=== PATIENT | male | born 1960 | race Caucasian/White ===

== ENCOUNTER 2020-07-12 17:37 | Day surgery (SDCO) | payer OTHER ==
[~2020-07-12] VITALS: Ht 162.6 cm; Wt 65.9 kg
[2020-07-12 18:22] LABS: BASOPHIL 0.5 % (0-2); EOSINOPHIL 0.6 % (0-5); HCT 37.4 % (42.0-52.0); HGB 13.5 g/dl (13.2-18.0); LYMPHOCYTE 24.3 % (15-48); MCH 39.6 pg (25.0-31.0); MCHC 36.1 g/dL (32.0-36.0); MCV 109.7 fL (78.0-100.0); MONOCYTE 9.1 % (0-12); MPV 10.3 fL (6.0-9.5); NEUTROPHIL 65.1 % (41-80); NRBC 0; PLT 111 K/uL (150-400); RBC 3.41 M/uL (4.70-6.00); RDW 12.8 % (11.5-14.0); WBC 13.3 K/uL (4.0-10.5)
[2020-07-12 18:25] LABS: INR 0.94 (0.9-1.2); PROTHROMBIN TIME 11.9 SECONDS (11.4-13.6); PTT 26.9 SECONDS (22.2-34.7)
[2020-07-12 18:38] LABS: ALBUMIN 3.2 g/dL (3.4-5.0); BILIRUBIN - TOTAL 0.3 mg/dL (0.2-1.0); BUN/CREAT RATIO (CALC) 27.3 RATIO; CREATININE 1.28 mg/dL (0.67-1.17); GLOBULIN (CALCULATION) 3.8 g/dL; POTASSIUM 4.2 mmol/L (3.5-5.1)
[2020-07-12 21:39] LABS: BILIRUBIN NEGATIVE (NEGATIVE); BLOOD NEGATIVE Ery/uL (NEGATIVE); CLARITY CLEAR (CLEAR); COLOR YELLOW (YELLOW); GLUCOSE (U) NORMAL (NORMAL); LEUKOCYTES NEGATIVE Leu/uL (NEGATIVE); NITRITE NEGATIVE (NEGATIVE); PROTEIN NEGATIVE (NEGATIVE); SPECIFIC GRAVITY 1.025 (1.001-1.030); UROBILINOGEN 0.2 mg/dL (0.2-1.0); pH 5.5 (5.0-9.0)
[2020-07-12 21:41] LABS: AMPHETAMINES NEGATIVE (NEGATIVE); BARBITURATES NEGATIVE (NEGATIVE); ECSTASY (MDMA) NEGATIVE (NEGATIVE); MARIJUANA (THC) NEGATIVE (NEGATIVE); METHADONE NEGATIVE (NEGATIVE); OPIATES NEGATIVE (NEGATIVE); OXYCODONE NEGATIVE (NEGATIVE)
--- NOTE | 2020-07-12 23:05 | NUR ---
PATIENT ARRIVED TO FLOOR VIA STRECHER FROM ER. ALERT AND ORIENTED. BED IN LOW POSITION BED ALERT TEST PREPARER LIGHT IN REACH. REPORT RECIEVED FROM LORENA WALLS
[2020-07-12 23:50] LABS: MAGNESIUM 1.1 mg/dL (1.8-2.4); PHOSPHORUS 5.9 mg/dL (2.6-4.7)
--- NOTE | 2020-07-13 04:03 | NUR ---
TANK TENDER CALLED RT TO OBTAIN ABG FOR POSSIBLE TRANSPORT AND INTUBATION IF NEEDED PATIENT ABG DRAWN AT 0151 ON 6L OXYMIZER. TANK TENDER NICOLA GIVEN RESULTS AND DECISION TO INTUABTE PATIENT FOR TRANSPORT TO . ALL SUPPLIES AND SUCTION GATHERED BY RT AT REQUEST OF TANK TENDER. PATIENT FIRST ATTEPMT WITH 7.5 ET AND OVALLE 3 BLADE AND BOUJIE PER TANK TENDER. SECOND ATTEMPT WITH MAC 4 AND STYLET AT REQUEST OF TANK TENDER ON HAND. ATTEMPT MADE WITH MAC 3/WITH STLYET. AND THEN GLIDESCOPE OBTAINED AT TANK TENDER REQUEST. PATIENT WAS BAGGED THROUGHOUT. GLIDESCOPE #3 BLADE USED FOR INTUBATION ON FOURTH ATTEMPT. GOOD CO2 COLOR CHANGE AND BREATH SOUNDS HEARD VIA STETHOSCOPE. RALES/RHONCI THROUGHOUT. MOISTURE VISUALIZED IN ET TUBE WITH BAGGED BREATHS. XRAY AT BEDSIDE. PATIENT INTUBATED WITH 7.5 ET 26 @LIP 0254 AM. XRAY OBTAINED AND TANK TENDER STATED ET TUBE IN GOOD POSTION. PATIENT PLACED ON VENT AC VT500, RATE 16, 60%, +5 SAT 99%, HR 108. PATIENT SUCTIONED ET/ORAL WITH THIN RED SECRETIONS. STAT FLIGHT TRANSPORT ARRIVED AND PATIENT TRANSPORTED TO HOSPITAL 0405.
--- NOTE | 2020-07-13 04:58 | NUR ---
late entry. 0115 ZINC FURNACE CHARGER ANTOINE PUT IN ORDERS TO TRANSFER PATIENT TO FOR HIGHER LEVEL OF CARE. ZINC FURNACE CHARGER NOTIFIED SON OF INTUBATION AND TRANSFER. 0200 PATIENT TRANSFERED TO ICU FOR INTUBATION. 5MG VERSED GIVEN AT 0215 BY ZINC FURNACE CHARGER, 20MG ETOMIDATE GIVEN AT 0216 BY ZINC FURNACE CHARGER, 200MG OF SUCCS GIVEN AT 0220 BY ZINC FURNACE CHARGER, PATIENT BEGAN TO WAKE UP ETOMIDATE 20MG GIVEN AT 0244 BY ZINC FURNACE CHARGER, VERCUROIUM 6MG GIVEN AT 0246, INTUBATED AT 0254. XRAY OBTAINEDAT 0255. DIPROVAN DRIP STARTED AT 5MCG/KG/HR AT 0300. BOLUS STARTED. NG TUBE RIGHT NARE PLACED KUB VERIFIED. SIU PLACED. AIR METHODS TRANSPORTED AT 0357 TO [facility]. REPORT CALLED TO BARRETT IN ER AT .
== END 2020-07-13 03:57 | disposition other institution (70) ==
LOC: FER 17:37 → FTCU 22:06
PROVIDERS: Emergency Medicine; Nurse Practitioner; ADMIT Internal Medicine
DX: S13.120A Subluxation of C1/C2 cervical vertebrae, initial encounter (principal); J96.02 Acute respiratory failure with hypercapnia; J96.01 Acute respiratory failure with hypoxia; I95.9 Hypotension, unspecified; R45.1 Restlessness and agitation; F10.129 Alcohol abuse with intoxication, unspecified; Y90.8 Blood alcohol level of 240 mg/100 ml or more; J44.9 Chronic obstructive pulmonary disease, unspecified; I25.10 Atherosclerotic heart disease of native coronary artery without angina pectoris; F17.210 Nicotine dependence, cigarettes, uncomplicated; Z95.1 Presence of aortocoronary bypass graft; W19.XXXA Unspecified fall, initial encounter
CPT/HCPCS: 31500; 36415; 36600; 70450; 71045; 72125; 72170; 74018; 80053; 80305; 81003; 82553; 82803; 83735; 84100; 84484; 85025; 85610; 85730; 93005; 94002; 94010; 94640; 94664; 94760; G0378; G0480; J0330; J2704; J2930; J3411; J3475; J3486; J7030; J7120

== ENCOUNTER 2021-07-11 18:18 | Emergency (ER) | payer OTHER ==
[2021-07-11 19:20] LABS: BASOPHIL 0.6 % (0-2); EOSINOPHIL 0.3 % (0-5); HCT 33.5 % (42.0-52.0); HGB 11.7 g/dl (13.2-18.0); LYMPHOCYTE 22.7 % (15-48); MCH 37.7 pg (25.0-31.0); MCHC 34.9 g/dL (32.0-36.0); MCV 108.1 fL (78.0-100.0); MONOCYTE 4.4 % (0-12); MPV 9.9 fL (6.0-9.5); NEUTROPHIL 71.7 % (41-80); NRBC 0.3; PLT 159 K/uL (150-400); RDW 15.6 % (11.5-14.0); WBC 7.9 K/uL (4.0-10.5)
[2021-07-11 19:23] LABS: LACTIC ACID 4.2 mmol/L (0.4-1.9)
[2021-07-11 19:27] LABS: ALBUMIN 3.2 g/dL (3.4-5.0); BILIRUBIN - TOTAL 0.3 mg/dL (0.2-1.0); BUN/CREAT RATIO (CALC) 23.7 RATIO; CREATININE 0.76 mg/dL (0.67-1.17); GLOBULIN (CALCULATION) 4.4 g/dL; TOTAL PROTEIN 7.6 g/dL (6.4-8.2)
[2021-07-11 22:03] LABS: BILIRUBIN NEGATIVE (NEGATIVE); BLOOD TRACE-INTACT Ery/uL (NEGATIVE); CLARITY CLEAR (CLEAR); COLOR YELLOW (YELLOW); GLUCOSE (U) NORMAL (NORMAL); LEUKOCYTES NEGATIVE Leu/uL (NEGATIVE); NITRITE NEGATIVE (NEGATIVE); PROTEIN 2+ mg/dL (NEGATIVE); SPECIFIC GRAVITY >=1.030 (1.001-1.030); UROBILINOGEN 0.2 mg/dL (0.2-1.0)
[2021-07-11 22:06] LABS: AMPHETAMINES NEGATIVE (NEGATIVE); BARBITURATES NEGATIVE (NEGATIVE); ECSTASY (MDMA) NEGATIVE (NEGATIVE); MARIJUANA (THC) NEGATIVE (NEGATIVE); METHADONE NEGATIVE (NEGATIVE); OPIATES NEGATIVE (NEGATIVE); OXYCODONE NEGATIVE (NEGATIVE)
[2021-07-11 22:10] LABS: BACTERIA TRACE; RENAL EPITHELIAL CELLS RARE; URINARY WBC RARE
== END 2021-07-12 03:45 | disposition home or self-care (01) ==
LOC: FER 18:18
PROVIDERS: Emergency Medicine
DX: F10.129 Alcohol abuse with intoxication, unspecified (principal); I48.91 Unspecified atrial fibrillation; I10 Essential (primary) hypertension; F17.200 Nicotine dependence, unspecified, uncomplicated; Y90.8 Blood alcohol level of 240 mg/100 ml or more; Z79.01 Long term (current) use of anticoagulants
CPT/HCPCS: 36415; 71045; 71275; 80053; 80305; 81001; 83605; 84145; 84484; 85025; 85379; 87040; 93005; 94640; 94664; G0480; J1630; J2543; J2930; J7030; Q9967